=== PATIENT | male | born 1940 | race Two or more races ===

== ENCOUNTER → 2016-11-02 | Outpatient (CLI) | payer MEDICARE ==
[2016-04-01 13:30] VITALS: BP 111/55
[~2016-11-02] MED LIST: ASPI325T4 PO; ASPI325T70 PO; CARV6.252 PO; ENAL2.5T PO; FURO-68 PO; GLIP5TAB10 PO; GLYB2.5T2 PO; GLYB5TAB3 PO; IPRA3AMP23 IH; LINA5TAB PO; LISI-334 PO; LOSA25TA4 PO; LOVA20TA2 PO; METF10002 PO; METF500T4 PO; METO25TA2 PO; NITR1PAT26 TD; PIOG15TA21 PO; POTA20TA12 PO; REGADENOSON 0.4 MG/5 ML DISP.SYRIN. IV ONE; SIMV10TA3 PO
--- NOTE | 2016-11-02 14:07 | RAD ---
APPROVED REPORT Test Type: Pharmacological Stress Nurse/Tech: Zuri Shields R.N. Test Indications: CAD Cardiac History: 2007 CABG, [place], HTN Medications: SEE EMR Medical History: DM Resting ECG: SR with 1st degree AV block Resting Heart Rate: 59 bpm Resting Blood Pressure: 114/56mmHg Pretest Chest Pain: None Nurse/Tech Notes S1S2, lungs CTA, denied chest pain, SOA. Denied dizziness. Consent: The procedure was explained to the patient in lay terms. Informed consent was witnessed. Zeferino eout was entered into [employer]. History and Stress Test performed by Zuri Shields R.N. Pharm. Details Pharmacologic stress testing was performed using 0.4mg per 5ml of regadenoson given intravenously ove r 7-10 seconds. Stress Symptoms SOA. Denied chest pain. POST EXERCISE Reason for Termination: Infusion complete Max HR: 98 bpm Max Blood Pressure: 135/55mmHg Blood Pressure response to exercise: Normal blood pressure response during stress. Heart Rate response to exercise: Normal Chest Pain: No. Arrhythmia: No. ST Change: No. INTERPRETATION Stress EKG Conclusion: Baseline EKG showed sinus rhythm with IVCD. No ischemic changes at peak stres s. No arrhythmias. Imaging Protocol IMAGE PROTOCOL: Rest Tc-99m/stress Tc-99m 1 day Rest: Stress: Viability: Radiopharm.Tc99m GrcffadmzDo06n Sestamibi Ptyl76wVp 37.1mCi Img Date 11/02/2016 11/02/2016 Inj-Img Ozzu26lfi. 60min. Rest Admin Site:IV - Left AntecubitalAdministrator:NOLVIA Rooney, ARRT (R)(N) Stress Admin Site: IV - Left AntecubitalAdministrator: NAGA Riojas STRESS DATA End Diast. Vol.133.0mlAv. Heart Rate85.0bpm End Syst. Vol.59.0mlCO Index BSA0.0L/min Myocardial Pgbw023.0gEject. Jzwyijwm64.0% Stress Rates Pk. Fill Rate1.76EDV/secLVtime Pk. Fill 190.93msec Pk. Empty Rate2.90ESV/secLVtime Pk. Zpvom869.68msec 1/3 Pk. Fill1.19EDV/sec Stress Scores Regional WT2.00Summed WT23.00 Regional WM1.00Summed WM18.00 LV Perfusion Scintigraphic images showed small reversible defect involving the distal anterior wall consistent wit h small amount of ischemia. Wall Motion Abnormal septal wall motion probably secondary to CABG. The left ventricular ejection fraction was c alculated at 56%. LV Perf. Quant 17 Seg. SSS7.00 17 Seg. SRS6.00 17 Seg. SDS3.00 Stress Defect Extent (% LAD)8.10Rest Defect Extent (% LAD)5.60Rev. Defect Extent (% LAD)5.00 Stress Defect Extent (% LCX) 43.80Rest Defect Extent (% LCX)33.80Rev. Defect Extent (% LCX)17.50 Stress Defect Extent (% RCA)0.00Rest Defect Extent (% RCA)0.00Rev. Defect Extent (% RCA)0.00 Stress Defect Extent (% GERMÁN)15.40Rest Defect Extent (% GERMÁN)8.50Rev. Defect Extent (% GERMÁN)9.10 Conclusion 1. Regadenoson cardioisotope stress test showed small amount of distal anterior wall ischemia. 2. Abnormal septal wall motion probably secondary to CABG. The left ventricular ejection fraction wa s calculated at 56%. 3. Low to intermediate risk for cardiac events.
--- NOTE | 2016-11-02 17:16 | RAD ---
APPROVED REPORT Patient Location: OUT-PATIENT Indications PAD VELOCITY AND DOPPLER WAVEFORM ANALYSIS RIGHT cm/secWaveformSeverity LEFT c m/secWaveformSeverity pCFA 112.0BiphasicpCFA 79.0Triphasic Prof Fem Art. 95.0BiphasicProf Fem Art. 132.0Biphasic Fem Art Prox. 104.0BiphasicFem Art Prox. 140.0Triphasic Fem Art Mid. 85.0BiphasicFem Art Mid. 87.0Biphasic Fem Art Dist. 94.0TriphasicFem Art Dist. 127.0Triphasic Pop Art(Fossa) 45.0TriphasicPop Art(Fossa) 59.0Triphasic SECURITY SYSTEM ENGINEER Prox. 73.0TriphasicPTA Prox. 81.0Triphasic Per Art Prox. 57.0TriphasicPer Art Prox. 48.0Triphasic PAVEL Prox. 56.0TriphasicATA Prox. 50.0Triphasic PAVEL Dist. 47.0MonophasicATA Dist. 78.0Triphasic Findings Grayscale images of the bilateral lower extremity arterial vessels reveal diffuse atherotic plaque wi th approximately 0-50% stenosis on grayscale images. Spectral tracings and color Doppler studies do not reveal any evidence of significant disease. Suspect 0-50% stenosis or mild to moderate diffuse d isease throughout without any critical flow-limiting disease. Critical Notification Critical Value: No <Conclusion> No evidence of high-grade flow-limiting disease noted in the bilateral lower extremity arterial vesse ls.
== END | disposition home or self-care (01) ==
LOC: NM 07:24
PROVIDERS: ATTEND Internal Medicine Cardiovascular Disease
DX: I73.9 Peripheral vascular disease, unspecified (principal); I25.10 Atherosclerotic heart disease of native coronary artery without angina pectoris; I65.23 Occlusion and stenosis of bilateral carotid arteries
CPT/HCPCS: 78452; 93017; 93925; 96374; 96376; A9500; J2785

== ENCOUNTER 2017-05-24 06:52 | Outpatient (CLI) | payer MEDICARE ==
[~2017-05-24] VITALS: Ht 165.1 cm; Wt 78.0 kg
[2017-05-24] VITALS (9 sets, daily range): BP systolic 117–210; BP diastolic 50–91
[~2017-05-24 06:52] MED LIST changes: -ASPI325T4 PO; +ASPI325T8 PO; -LINA5TAB PO; +LINA5TAB4 PO; +METF-620 PO; -METF10002 PO; -PIOG15TA21 PO; +PIOG15TA42 PO; -REGADENOSON 0.4 MG/5 ML DISP.SYRIN. IV ONE
[2017-05-24] MEDS ORDERED: IODIXANOL 320 MG/ML 100 ML VIAL. ONE (07:17)
[2017-05-24] MEDS ORDERED: LIDOCAINE 2% 20 ML VIAL. ONE (07:17)
[2017-05-24 07:21] LABS: HEMATOCRIT 43.4 % (39.0-53.0); RED BLOOD COUNT 4.74 x10^6/uL (4.30-5.70); RED CELL DISTRIBUTION WIDTH 13.9 % (11.5-14.5); WHITE BLOOD COUNT 6.1 x10^3/uL (4.0-11.0)
[2017-05-24 07:32] LABS: INR 1.1 (0.8-1.1); PROTHROMBIN TIME PATIENT 13.6 SEC (11.7-14.0)
[2017-05-24 07:33] LABS: CALCIUM 9.6 mg/dL (8.5-10.1); CREATININE 1.3 mg/dL (0.7-1.3); GFR 53.3; POTASSIUM 4.4 mmol/L (3.5-5.1)
[2017-05-24] MEDS ORDERED: MIDAZOLAM HCL/PF 2 MG/2 ML VIAL. ONE (08:16)
[2017-05-24] MEDS ORDERED: fentaNYL PF VIAL 100 MCG/2 ML VIAL ONE (08:16)
[2017-05-24] MEDS ORDERED: LIDOCAINE 1% / SOD BICARB 8.4% 20 ML VIAL. IJ ONE (08:45)
[2017-05-24] MEDS ORDERED: MIDAZOLAM HCL/PF 2 MG/2 ML VIAL. IV ONE (08:45)
[2017-05-24] MEDS ORDERED: fentaNYL PF VIAL 100 MCG/2 ML VIAL IV ONE (08:45)
[2017-05-24] MEDS ORDERED: IODIXANOL 320 MG/ML 100 ML VIAL. IART ONE (09:00)
[2017-05-24] MEDS ORDERED: LIDOCAINE 2% 20 ML VIAL. IJ ONE (09:00)
--- NOTE | 2017-05-24 09:53 | PDOC ---
MODERATE SEDATION ASSESSMENT RISKS/ALTERNATIVES Risks/Alternatives Risks and alternatives of this type of sedation and procedure discussed with: RISK/ALTERNATIVES: Patient H & P ON CHART H & P H & P on chart and reviewed for co-morbid conditions and appropriate labs. H&P ON CHART: Yes STATUS PREG STATUS ASSESSED: N/A MEDS/ALLERGIES REVIEWED Meds/Allergies Reviewed Medications and Allergies including time and route of recently administered narcotics and sedatives. MEDS/ALLERGIES REVIEWED: Yes ASA RATING ASA RATING: II AIRWAY ASSESSMENT Airway Assessment Airway patency, oral function limitations, presence of caps, crowns, dentures, partials, and ability to extend neck assessed. AIRWAY ASSESSMENT: Yes MALLAMPATI SCORE MALLAMPATI SCORE: II PRE-SEDATION ASSESSMENT PRE-SEDATION ASSESSMENT: Yes CANDI ROSS MD May 24, 2017 09:53
[2017-05-24] MEDS ORDERED: IV 1/2 NORMAL SALINE 1,000 ML IV SCH (10:04)
[2017-05-24] MEDS ORDERED: ACETAMINOPHEN 325 MG TABLET. PO PRN (10:15)
--- NOTE | 2017-05-25 06:49 | CARD ---
APPROVED REPORT Patient StatusOUT-PATIENT Javascript Engineer: Misael Smith RT (R) Procedure(s) performed: Aortogram with bilateral lower extremity runoff INDICATION FOR PROCEDURE The indication(s) include : Peripheral vascular disease with claudication. PROCEDURE NARRATIVE After explaining the risks, benefits and alternative options, informed consent was obtained from baylee ent. Patient was brought to the cardiac Commissioning Editor and his right groin was prepped and draped in the us ual fashion. 20 mL of 2% lidocaine was infiltrated into the skin and subcutaneous tissues for local a nesthesia. Arterial access was obtained in the right common femoral artery and a 5 Ugandan sheath was inserted. 5 Ugandan pigtail catheter was used to perform aortogram with bilateral lower extremity runo ff. A 5 [place]andan crossover catheter was then used to cross the aortic gurvinder and with the tip positione d in the proximal segment of left superficial femoral artery, selective left lower extremity angiogra phy was performed for better visualization of below the knee vessels. Finally, contrast injections we re performed through the sheath in the right groin for right lower extremity angiography and visualiz ation of below the knee vessels. Patient tolerated the procedure well. Hemostasis was achieved using Perclose suture closure device. There were no immediate complications. FINDINGS 1. No significant stenosis involving the distal descending aorta, bilateral common iliac, external i liac arteries. 2. No significant stenosis involving bilateral common femoral arteries. The left superficial femoral artery showed 40% stenosis in the distal segment. The right superficial femoral artery did not show any significant stenosis. 3. No significant stenosis involving bilateral popliteal arteries. 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 There is one vessel runoff below the knee right lower extremity with chronic total occlusion of right posterio r tibial artery. The right anterior tibial artery also showed chronic total occlusion in the proximal segment but there is mid to distal reconstitution from collaterals. 4. 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 Conclusion Below the knee peripheral vascular disease as stated above without any significant major vessel steno sis. 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 Recommendations Risk factor modification and regular exercise regimen.
== END 2017-05-24 11:44 | disposition home or self-care (01) ==
LOC: CCL 06:52 → EDBD 06:52 → CCL 11:44
PROVIDERS: ATTEND Internal Medicine Cardiovascular Disease
DX: E11.51 Type 2 diabetes mellitus with diabetic peripheral angiopathy without gangrene (principal); I25.10 Atherosclerotic heart disease of native coronary artery without angina pectoris; E78.00 Pure hypercholesterolemia, unspecified; I10 Essential (primary) hypertension; J44.9 Chronic obstructive pulmonary disease, unspecified; F17.200 Nicotine dependence, unspecified, uncomplicated; Z90.49 Acquired absence of other specified parts of digestive tract; Z87.442 Personal history of urinary calculi; Z87.39 Personal history of other diseases of the musculoskeletal system and connective tissue; Z86.39 Personal history of other endocrine, nutritional and metabolic disease; Z79.01 Long term (current) use of anticoagulants
CPT/HCPCS: 36415; 75630; 80048; 85027; 85610; 85730; C1769; C1771; C1887; C1892; G0269; J1644; J2001; J2250; J3010; Q9967

== ENCOUNTER → 2018-08-22 | Outpatient (CLI) | payer MEDICARE ==
[2017-05-24 11:15] VITALS: BP 145/73
[~2018-08-22] MED LIST changes: -LOSA25TA4 PO; +LOSA25TA5 PO; -METF-620 PO; +METF10007 PO; +METF500T16 PO; -METF500T4 PO
--- NOTE | 2018-08-22 09:29 | CARD ---
MR#: [id number] Date of Study: 08/22/2018 Ordering Physician: CANDI ROSS, Referring Physician: CANDI ROSS, Tech: Ashia Villalobos APPROVED REPORT EXAM: Two-dimensional and M-mode echocardiogram with Doppler and color Doppler. Other Information Quality : AverageHR: 70bpm Rhythm : NSR INDICATION CAD RISK FACTORS Hyperlipidemia Diabetes 2D DIMENSIONS RVDd2.7 (2.9-3.5cm)Left Atrium(2D)4.6 (1.6-4.0cm) IVSd1.3 (0.7-1.1cm)Aortic Root(2D)3.3 (2.0-3.7cm) LVDd4.1 (3.9-5.9cm)LVOT Diameter2.3 (1.8-2.4cm) PWd1.4 (0.7-1.1cm)LVDs3.6 (2.5-4.0cm) FS (%) 11.5 %SV18.9 ml LVEF(%)25.3 (>50%) Aortic Valve AoV Peak Stephen.147.2cm/sAoV VTI23.6cm AO Peak GR.8.7mmHgLVOT Peak Stephen.79.3cm/s AO Mean GR.4mmHgAVA (VMAX)2.28cm2 Mitral Valve MV E Fvshwmcr84.8cm/sMV DECEL [id number] MV A Tvylxhno01.3cm/sE/A Ratio1.0 Pulmonary Valve PV Peak Fhpwfkwc993.2cm/s Tricuspid Valve RAP [id number] Pulmonary Vein S1 Trwathqh48.0cm/sD2 Akwhxaof83.9cm/s PVa [id number] LEFT VENTRICLE The left ventricle is normal size. There is moderate concentric left ventricular hypertrophy. The sys tolic function is mildly impaired. The Ejection Fraction is 45-50%. There is global hypokinesis of th e left ventricle. Septal motion suggestive of prior CABG/conduction defect. Transmitral Doppler flow pattern is Grade II-pseudonormal filling dynamics. RIGHT VENTRICLE The right ventricle is normal size. There is normal right ventricular wall thickness. The right ventr icular systolic function is normal. ATRIA The left atrium size is normal. The right atrium size is normal. The interatrial septum is intact wit h no evidence for an atrial septal defect or patent foramen ovale as noted on 2-D or Doppler imaging. AORTIC VALVE The aortic valve is normal in structure and function. Doppler and Color Flow revealed no significant aortic regurgitation. There is no significant aortic valvular stenosis. MITRAL VALVE The mitral valve is normal in structure and function. There is no mitral valve stenosis. Doppler and Color Flow revealed trace mitral regurgitation. TRICUSPID VALVE The tricuspid valve is normal in structure and function. Doppler and Color Flow revealed no tricuspid valve regurgitation noted. There is no tricuspid valve stenosis. PULMONIC VALVE The pulmonic valve is not well visualized. Doppler and Color Flow revealed trace pulmonic valvular re gurgitation. There is no pulmonic valvular stenosis. GREAT VESSELS The aortic root is normal in size. Normal pulmonary venous flow (Doppler). The IVC is normal in size and collapses >50% with inspiration. PERICARDIAL EFFUSION There is no evidence of significant pericardial effusion. Critical Notification Critical Value: No <Conclusion> The systolic function is mildly impaired. The Ejection Fraction is 50%. There is global hypokinesis of the left ventricle. Septal motion suggestive of prior CABG/conduction defect. Transmitral Doppler flow pattern is Grade II-pseudonormal filling dynamics. Signed by : Yg Vines, Electronically Approved : 08/22/2018 09:28:30
== END | disposition home or self-care (01) ==
LOC: ECHO 07:42
PROVIDERS: ATTEND Internal Medicine Cardiovascular Disease
DX: I25.10 Atherosclerotic heart disease of native coronary artery without angina pectoris (principal); F17.200 Nicotine dependence, unspecified, uncomplicated
CPT/HCPCS: 93306

== ENCOUNTER → 2019-09-14 | Outpatient (CLI) | payer MEDICARE ==
[2017-05-24 11:15] VITALS: BP 145/73
[~2019-09-14] MED LIST changes: +CARV6.2511 PO; -CARV6.252 PO; +LINA5TAB PO; -LINA5TAB4 PO; -LOSA25TA5 PO; +LOSA25TA54 PO; +SIMV10TA15 PO; -SIMV10TA3 PO
--- NOTE | 2019-09-14 15:29 | CARD ---
MR#: [id number] Date of Study: 09/14/2019 Ordering Physician: CANDI ROSS, Referring Physician: Chika NUNEZ: Ayanna Anderson APPROVED REPORT EXAM: Two-dimensional and M-mode echocardiogram with Doppler and color Doppler. Other Information Quality : AverageLimitedHR: 76bpm INDICATION CAD 2D DIMENSIONS RVDd2.2 (2.9-3.5cm)Left Atrium(2D)4.5 (1.6-4.0cm) IVSd1.4 (0.7-1.1cm)Aortic Root(2D)2.0 (2.0-3.7cm) LVDd4.8 (3.9-5.9cm)LVOT Diameter1.6 (1.8-2.4cm) PWd1.2 (0.7-1.1cm)LVDs2.1 (2.5-4.0cm) FS (%) 55.9 %SV93.7 ml Aortic Valve AoV Peak Stephen.146.3cm/sAoV VTI24.5cm AO Peak GR.8.6mmHgLVOT Peak Stephen.79.5cm/s AO Mean GR.5mmHgAVA (VMAX)1.09cm2 Mitral Valve MV E Racbeebq06.2cm/sMV E Peak Gr.2mmHg MV DECEL [id number] A Gutbuppb69.5cm/s MV E Mean Gr.1mmHgE/A Ratio1.2 Pulmonary Valve PV Peak Ziscudml21.5cm/s Tricuspid Valve RAP [id number] Pulmonary Vein S1 Zcmqzwtg39.2cm/sD2 Xpnitapb29.1cm/s LEFT VENTRICLE The left ventricle is normal size. There is mild concentric left ventricular hypertrophy. The left ve ntricular systolic function is normal and the ejection fraction is within normal range. The Ejection Fraction is 50-55%. There is normal LV segmental wall motion. Transmitral Doppler flow pattern is Gra de I-abnormal relaxation pattern. RIGHT VENTRICLE The right ventricle is normal size. The right ventricular systolic function is normal. ATRIA The left atrium is mildly dilated. The right atrium size is normal. The interatrial septum is intact with no evidence for an atrial septal defect or patent foramen ovale as noted on 2-D or Doppler imagi ng. AORTIC VALVE The aortic valve is thickened but opens well. Doppler and Color Flow revealed no significant aortic r egurgitation. There is no significant aortic valvular stenosis. MITRAL VALVE The mitral valve is thickened but opens well. There is no evidence of mitral valve prolapse. There is no mitral valve stenosis. Doppler and Color-flow revealed trace mitral regurgitation. TRICUSPID VALVE The tricuspid valve is normal in structure and function. Doppler and Color Flow revealed trace tricus pid regurgitation. PULMONIC VALVE The pulmonic valve is not well visualized. Doppler and Color Flow revealed no pulmonic valvular regur gitation. GREAT VESSELS The aortic root is normal in size. The ascending aorta is normal in size. The IVC is normal in size a nd collapses >50% with inspiration. PERICARDIAL EFFUSION There is no pleural effusion. There is no evidence of significant pericardial effusion. Critical Notification Critical Value: No <Conclusion> The left ventricle is normal size. The left ventricular systolic function is normal and the ejection fraction is within normal range. The Ejection Fraction is 50-55%. There is mild concentric left ventricular hypertrophy. Doppler and Color Flow revealed no significant aortic regurgitation. There is no significant aortic valvular stenosis. Doppler and Color-flow revealed trace mitral regurgitation. Doppler and Color Flow revealed trace tricuspid regurgitation. Signed by : Sam Anguiano MD Electronically Approved : 09/14/2019 15:28:52
== END | disposition home or self-care (01) ==
LOC: ECHO 13:21
PROVIDERS: ATTEND Internal Medicine Cardiovascular Disease
DX: I51.7 Cardiomegaly (principal); I25.10 Atherosclerotic heart disease of native coronary artery without angina pectoris
CPT/HCPCS: 93306